=== PATIENT | female | born 1975 ===

== ENCOUNTER → 2016-05-25 | Outpatient (CLI) | payer BC ==
[~2016-05-25] MED LIST: ASCA500 PO; CHOL2000 PO; FOLI1TAB7 PO; OMEG10007 PO; PRENTAB26 PO; PRZCUNK
[2016-05-28 14:03] LABS: CHLAMYDIA TRACH RNA*** NOT DETECTED (NOT DETECTED); GC (NEIS GONORRHOEAE)RNA** NOT DETECTED (NOT DETECTED)
== END | disposition home or self-care (01) ==
LOC: C.LABSPEC 15:22
PROVIDERS: ATTEND Obstetrics & Gynecology
DX: Z34.01 Encounter for supervision of normal first pregnancy, first trimester (principal)

== ENCOUNTER → 2016-05-25 | Outpatient (CLI) | payer BC | END | disposition home or self-care (01) | LOC: C.PAPS 16:14 | PROVIDERS: ATTEND Obstetrics & Gynecology | DX: Z34.01 Encounter for supervision of normal first pregnancy, first trimester (principal) ==

== ENCOUNTER → 2016-08-25 | Outpatient (CLI) | payer BC ==
[~2016-08-25] MED LIST changes: +LEVAPOW PO; +[UNRECOGNIZED DRUG - CODE] PO
--- NOTE | 2016-08-25 13:39 | DIAGNOSTIC IMAGING REPORT ---
LIMITED ULTRASOUND CLINICAL HISTORY: VAGINAL SPOTTING, 22.6 WEEKS COMPARISON STUDY: ultrasound April 25, 2016. TECHNIQUE: Transabdominal and transvaginal sonography of the pelvis was performed. FINDINGS: A single viable intrauterine gestation is noted with normal heart rate of 142 bpm. The placenta is located posteriorly and within the fundus. There is no placental abnormality by sonography. The cervix is closed, measuring 4.3 cm in length. A few nabothian cysts are incidentally noted. Please note that a dedicated anatomical survey was not performed. Subjectively, the amount of amniotic fluid appears normal. IMPRESSION: 1. Single viable intrauterine gestation with normal heart rate of 142 bpm. 2. No placental abnormality by sonography. 3. Closed cervix, measuring 4.3 cm in length. Electronically signed by: Mickey Ware M.D. 08/25/2016 1:37 PM Dictated Date/Time: 08/25/2016 1:35 PM
== END | disposition home or self-care (01) ==
LOC: C.ULTRBC 13:03
PROVIDERS: ATTEND Obstetrics & Gynecology
DX: O26.852 Spotting complicating pregnancy, second trimester (principal); Z3A.22 22 weeks gestation of pregnancy

== ENCOUNTER 2016-12-06 23:30 | Inpatient (IN) | payer BC ==
[~2016-12-06] VITALS: Ht 175.3 cm; Wt 99.8 kg
[~2016-12-06 23:30] MED LIST changes: -CHOL2000 PO; -FOLI1TAB7 PO; -LEVAPOW PO; -OMEG10007 PO; -PRENTAB26 PO; -[UNRECOGNIZED DRUG - CODE] PO
[2016-12-07] MEDS ORDERED: LACTATED RINGER'S 1000ML 1,000 ML IV PRN (00:35)
[2016-12-07] MEDS ORDERED: LACTATED RINGER'S 1000ML 1,000 ML IV SCH (00:35)
[2016-12-07 00:57] LABS: HEMATOCRIT 37.7 % (37-47); MEAN CELL VOLUME 94.5 fL (80-100); MEAN CORPUSCULAR HEMOGLOBIN 33.1 pg (25-34); RED BLOOD COUNT 3.99 M/uL (4.2-5.4)
[2016-12-07 00:58] LABS: MEAN PLATELET VOLUME 11.8 fL (7.4-10.4); PLATELET COUNT 202 K/uL (130-400)
[2016-12-07] MEDS ORDERED: PRENTAB26 PO (01:37)
[2016-12-07] MEDS ORDERED: OMEG10007 PO (01:37)
[2016-12-07] MEDS ORDERED: FOLI1TAB7 PO (01:37)
[2016-12-07] MEDS ORDERED: CHOL2000 PO (01:37)
[2016-12-07 01:39] VITALS: Ht 175.3 cm; Wt 99.8 kg
[2016-12-07] MEDS ORDERED: NURSING VERBAL MED ORDER ONE ×2 (03:45→13:30)
[2016-12-07] MEDS ORDERED: ACETAMINOPHEN 325 MG TAB PO ONE (04:15)
[2016-12-07] MEDS ORDERED: ACETAMINOPHEN 325 MG TAB ONE ×3 (13:08→13:13)
[2016-12-07] MEDS ORDERED: LACTATED RINGER'S 1000ML 500 ML IV PRN ×2 (15:47→19:25)
[2016-12-07] MEDS ORDERED: OXYTOCIN 30 UNITS/500ML NSS IV PRN (16:00)
[2016-12-07] MEDS ORDERED: EpHEDrine SULFATE INJ 50 MG/ML AMP ONE (16:47)
[2016-12-07] MEDS ORDERED: FENTANYL CITRATE INJ 50 MCG/1 ML 2 ML VIAL ONE (16:47)
[2016-12-07] MEDS ORDERED: FENTANYL 2MCG/ML ROPIV 1.25MG/ML 100ML BAG EPI ONE (16:47)
[2016-12-07] MEDS ORDERED: BUPIVACAINE 0.25% 30 ML VIAL ONE (16:47)
[2016-12-07] MEDS ORDERED: NALOXONE HCL INJ 1 MG in SODIUM CHLORIDE 0.9% 1000ML 1,000 ML IV PRN (19:25)
[2016-12-07] MEDS ORDERED: EpHEDrine SULFATE INJ 50 MG/ML AMP IV PRN (19:30)
[2016-12-07] MEDS ORDERED: NALBUPHINE HCL INJ 10 MG/ML AMP IV PRN (19:30)
[2016-12-07] MEDS ORDERED: DiphenhydrAMINE HCL 50 MG/ML VIAL IV PRN (19:30)
[2016-12-07] MEDS ORDERED: FENTANYL 2MCG/ML ROPIV 1.25MG/ML 100ML BAG EPI PRN (19:30)
[2016-12-07] MEDS ORDERED: NALOXONE HCL INJ 0.4 MG/1 ML VIAL/CARP IV PRN (19:30)
[2016-12-08] VITALS (7 sets, daily range): BP systolic 77–140; BP diastolic 44–84; PULSE 67–111; TEMP 36.4–36.9; O2SAT 99–100
[2016-12-08] MEDS ORDERED: HYDROCORTISONE ACETATE 25 MG SUPP PR PRN
[2016-12-08] MEDS ORDERED: LANOLIN OINT EXT PRN ×2
[2016-12-08] MEDS ORDERED: OXYTOCIN 30 UNITS/500ML NSS IV PRN
[2016-12-08] MEDS ORDERED: SUPERCREAM 0.870 % 15GM JAR EXT PRN
[2016-12-08] MEDS ORDERED: ACETAMINOPHEN/CODEINE 300/30MG TAB PO PRN ×2
[2016-12-08] MEDS ORDERED: ACETAMINOPHEN 325 MG TAB PO PRN
[2016-12-08] MEDS ORDERED: DIPHTHERIA/TETANUS/PERTUSSIS 0.5 ML SYR/VIAL IM. ONE
[2016-12-08] MEDS ORDERED: OXYCODONE/ACETAMINOPHEN 5-325 TAB PO PRN
[2016-12-08] MEDS ORDERED: BENZOCAINE 20% AER SPR 82.5 GM CAN EXT PRN
[2016-12-08] MEDS ORDERED: CEFOXITIN 2000MG/60 ML D5W IV STA (00:04)
[2016-12-08 05:41] LABS: URINE APPEARANCE CLOUDY (CLEAR); URINE BILIRUBIN NEG (NEG); URINE COLOR DK YELLOW; URINE EPITHELIAL CELL AUTO >30 /lpf (0-5); URINE NITRITE NEG (NEG); URINE PH 5.5 (4.5-7.5); URINE SPECIFIC GRAVITY 1.022 (1.000-1.030); UROBILINOGEN NEG (NEG); ZZURINE CULT IF INDIC CATH YES
[2016-12-08 05:54] LABS: MANUAL MICROSCOPIC REQUIRED? NO; REVIEW REQ? YES
[2016-12-08 06:00] LABS: URINE PATH CASTS 0-3 GRANULAR CASTS /lpf (0)
[2016-12-08 06:09] LABS: HEMATOCRIT 36.4 % (37-47)
--- NOTE | 2016-12-08 07:09 | DELIVERY SUMMARY ---
DATE OF OPERATION: 12/08/2016 The patient is a 40-year-old 1, para 1, had been followed in our office for care and delivery. Blood type is O positive, rubella immune. Vaginal beta strep screen negative. Due date is 12/24/2016. Came in with miranda rupture of membranes with sporadic contractions. We advised that she have labor stimulation, she declined. She continued to decline any augmentation of labor until she was about 20 hours post rupture of membranes when she finally let us do some IV Pitocin. Prior to this, she had dilated up to about 4-5 cm and had an arrest for over 4 hours. This was managed with epidural and then IV Pitocin. With the IV Pitocin, she obtained a good labor contraction pattern and the head started to come down. However, prior to delivery, she developed some persistent tachycardia, although variability was good and delivery was eminent with head starting to crown. She went to full dilatation. With the head on the perineum and with the heart rate remaining high, I elected to do an outlet forceps with Rico forceps. The application was good in direct OA position, and with a small amount of effort, was able to deliver the head. There was nuchal cord x1 which was delivered over the head. Then, the body was delivered without difficulty. Infant was suctioned through the mouth and the nose prior to delivery of the body. Cord was clamped, cut by the patient's mother. Cord blood was taken. Then, with IV Pitocin running, the placenta was removed intact. My own estimation 1- and 5-minute Apgars were 8 and 10 respectively. Following removal of the placenta, inspection of the perineum revealed a first-degree perineal laceration, this was repaired with 2-0 Vicryl. 2-0 Vicryl was used to approximate the vaginal mucosa out until beyond the hymenal ring. A deep suture of 2-0 Vicryl was used to approximate the bulbocavernosus muscles. Two sutures were used to approximate the perineal body and then separate sutures were used to bolster the rectal sphincter capsule. Following this, a running subcuticular suture was used to approximate the perineal skin edges. Then, vaginal exam including rectovaginal examination revealed no hematoma formation or sponges in the rectum. Estimated blood loss was 300 mL. Following repair, I was notified by the nurse that she had her first elevated temperature at 100.8 and I ordered 2 blood cultures, cath urine, and Mefoxin 2 grams every 8 hours for suspected endometritis. I attest to the content of the Intraoperative Record and any orders documented therein. Any exception s are noted below.
[2016-12-08] MEDS: IBUPROFEN 600 MG TAB PO PRN ×2 (08:05→15:21)
[2016-12-08] MEDS: CEFOXITIN IV 2,000 MG in DEXTROSE 5% 50ML 50 ML IV SCH ×2 (08:05→16:50)
[2016-12-08] MEDS: PRENATAL VITAMIN TAB PO SCH (08:13)
[2016-12-08] MEDS: FERROUS SULFATE 325 MG TAB PO SCH (08:13)
[2016-12-08] MEDS: DOCUSATE SODIUM 100 MG CAP PO SCH ×2 (08:13→20:05)
--- NOTE | 2016-12-08 09:17 | Anesthesia Procedure Note ---
Anesthesia Epidural Removal Nt Date & Time Dec 08, 2016 at 09:17 Vital Signs Pain Intensity: 2.0 Vital Signs Past 12 Hours Date Time Temp Pulse Resp B/P (MAP) Pulse Ox O2 Delivery O2 Flow Rate FiO2 12/08/16 07:55 Room Air 12/08/16 07:55 36.6 68 18 118/68 (85) Room Air 12/08/16 04:03 36.9 100 18 140/84 (102) Room Air 12/08/16 02:30 36.8 111 18 112/53 (72) Room Air 12/08/16 02:30 Room Air Notes Mental Status: alert / awake / arousable, participated in evaluation Nausea / Vomiting: adequately controlled Pain: adequately controlled Airway Patency, RR, SpO2: stable & adequate BP & HR: stable & adequate Hydration State: stable & adequate Neuraxial Anesthesia: was administered Anesthetic Complications: no major complications apparent, pt satisfied with anesthetic care Epidural: removed without complications, with tip intact
--- NOTE | 2016-12-08 12:18 | Progress Note ---
Subjective Dec 08, 2016. Subjective conversation w/ patient Ambulation: ambulating normally Voiding: no voiding problems Passing Gas: Yes Diet Tolerance: Regular Diet Lochia: Small Feeding Type: Breast Feeding Review of Systems Constitutional: + fever Objective Vital Signs Date Time Temp Pulse Resp B/P (MAP) Pulse Ox O2 Delivery O2 Flow Rate FiO2 12/08/16 11:55 85/49 (61) 12/08/16 11:27 36.4 70 77/44 (55) 99 Room Air 12/08/16 07:55 Room Air 12/08/16 07:55 36.6 68 18 118/68 (85) Room Air 12/08/16 04:03 36.9 100 18 140/84 (102) Room Air 12/08/16 02:30 36.8 111 18 112/53 (72) Room Air 12/08/16 02:30 Room Air Physical Exam General Appearance: WELL-APPEARING Respiratory/Chest: lungs clear Abdomen: normal bowel sounds Fundus: Firm, Non-Tender Extremities: no pedal edema, no calf tenderness Laboratory Results Last 24 Hours Test 12/07/16 23:55 12/08/16 05:39 Urine Color DK YELLOW Urine Appearance CLOUDY Urine pH 5.5 Urine Specific [place] 1.022 Urine Protein 2+ Urine Glucose (UA) NEG Urine Ketones 1+ Urine Occult Blood 3+ Urine Nitrite NEG Urine Bilirubin NEG Urine Urobilinogen NEG Urine Leukocyte Esterase TRACE Urine WBC (Auto) 10-30 /hpf Urine RBC (Auto) >30 /hpf Urine Hyaline Casts (Auto) 1-5 /lpf Urine Epithelial Cells (Auto) >30 /lpf Urine Bacteria (Auto) NEG Urine Renal Epithelial Cells /lpf Urine Pathogenic Casts 0-3 GRANULAR CASTS /lpf Hemoglobin 12.6 g/dL Hematocrit 36.4 % Assessment and Plan Post- Day#: 1 Continue Routine Care: patient on mefoxin
[2016-12-08] MEDS ORDERED: BISACODYL 5 MG TABEC PO SCH (20:00)
[2016-12-09] MEDS: CEFOXITIN IV 2,000 MG in DEXTROSE 5% 50ML 50 ML IV SCH ×3 (01:09→16:13)
[2016-12-09 01:10] VITALS: BP 97/48; PULSE 71; TEMP 36.5; O2SAT 98
[2016-12-09] MEDS: IBUPROFEN 600 MG TAB PO PRN ×2 (03:52→16:12)
[2016-12-09] MEDS ORDERED: BISACODYL 10 MG SUPP PR PRN (07:00)
[2016-12-09] MEDS: PRENATAL VITAMIN TAB PO SCH (08:25)
[2016-12-09] MEDS: DOCUSATE SODIUM 100 MG CAP PO SCH ×2 (08:25→21:00)
[2016-12-09] MEDS: FERROUS SULFATE 325 MG TAB PO SCH (08:25)
[2016-12-09 08:39] VITALS: BP 106/58; PULSE 76; TEMP 36.7; O2SAT 98
--- NOTE | 2016-12-09 10:41 | Progress Note ---
Subjective Dec 09, 2016. Subjective conversation w/ patient Ambulation: ambulating normally Voiding: no voiding problems Passing Gas: Yes Diet Tolerance: Regular Diet Lochia: Small Feeding Type: Breast Feeding Review of Systems Constitutional: + fever Objective Vital Signs Date Time Temp Pulse Resp B/P (MAP) Pulse Ox O2 Delivery O2 Flow Rate FiO2 12/09/16 08:39 36.7 76 16 106/58 (74) 98 Room Air 12/09/16 08:15 Room Air 12/09/16 01:10 98 Room Air 12/09/16 01:10 36.5 71 16 97/48 (64) 98 Room Air 12/08/16 20:20 36.6 67 16 103/65 (78) 100 Room Air 12/08/16 16:30 Room Air 12/08/16 16:30 36.9 83 16 98/46 (63) 99 Room Air 12/08/16 12:15 Room Air 12/08/16 11:55 85/49 (61) 12/08/16 11:27 36.4 70 77/44 (55) 99 Room Air Physical Exam General Appearance: WELL-APPEARING Abdomen: non tender Fundus: Firm, Non-Tender Extremities: no pedal edema, no calf tenderness Assessment and Plan Post- Day#: 2 Continue Routine Care: patient is being treated for endometritis with IV mefoxin
[2016-12-09 11:30] VITALS: BP 115/71; PULSE 60; TEMP 36.8
[2016-12-09 16:25] VITALS: BP 122/65; PULSE 60; TEMP 36.4; O2SAT 98
[2016-12-10] MEDS: CEFOXITIN IV 2,000 MG in DEXTROSE 5% 50ML 50 ML IV SCH ×3 (00:16→16:00)
[2016-12-10 00:20] VITALS: BP 116/73; PULSE 76; TEMP 36.8; O2SAT 98
[2016-12-10 08:00] VITALS: BP 104/59; PULSE 65; TEMP 37
[2016-12-10] MEDS: DOCUSATE SODIUM 100 MG CAP PO SCH (08:14)
[2016-12-10] MEDS: PRENATAL VITAMIN TAB PO SCH (08:14)
[2016-12-10] MEDS: FERROUS SULFATE 325 MG TAB PO SCH (08:14)
[2016-12-10] MEDS: IBUPROFEN 600 MG TAB PO PRN (09:54)
--- NOTE | 2016-12-10 09:56 | Progress Note ---
Subjective Dec 10, 2016. Subjective conversation w/ patient Ambulation: ambulating normally Voiding: no voiding problems Passing Gas: Yes Diet Tolerance: Regular Diet Lochia: Small Feeding Type: Breast Feeding Review of Systems Constitutional: + fever Objective Vital Signs Date Time Temp Pulse Resp B/P (MAP) Pulse Ox O2 Delivery O2 Flow Rate FiO2 12/10/16 08:00 Room Air 12/10/16 08:00 37.0 65 16 104/59 (74) Room Air 12/10/16 00:20 Room Air 12/10/16 00:20 36.8 76 18 116/73 (87) 98 Room Air 12/09/16 16:25 Room Air 12/09/16 16:25 36.4 60 16 122/65 (84) 98 Room Air 12/09/16 11:30 36.8 60 18 115/71 (86) Room Air Physical Exam General Appearance: WELL-APPEARING Respiratory/Chest: lungs clear Abdomen: non tender Fundus: Firm, Non-Tender Extremities: no pedal edema, no calf tenderness Assessment and Plan Post- Day#: 3 Continue Routine Care: patient is on mefoxin patient will be discharged on augmentin placental culture shows small amount of growth
--- NOTE | 2016-12-10 09:59 | Discharge Instructions ---
Discharge Instructions Date of Service Dec 10, 2016. Admission Reason for Admission: LABOR Discharge Discharge Diagnosis / Problem: premature rupture of membranes endometritis Discharge Goals Goal(s): Routine recovery after delivery Activity Recommendations Activity Limitations: as noted below ACTIVITY RECOMMENDATIONS: * Gradual return to full activity over the next 2-3 weeks. * No lifting - nothing heavier than baby over the next 2-3 weeks. * Do not engage in vigorous exercise, sexual activity or sports until cleared by your physician. * Do not drive or operate any motorized equipment until cleared by your physician. * You may shower/bathe daily. DIET: Resume Previous Diet If Breast-feeding: * Increase caloric intake by 500 calories, eat 3 well balanced meals, 2 high protein snacks a day and drink 6-8 8oz. glasses of fluid per day. BREAST CARE: If you are not breast feeding: * Wear a supportive bra 24 hours a day for one to two weeks. * Avoid stimulating your breasts and nipples as much as possible during the first few weeks after delivery. * When taking a shower, have the warm water hit your back, not breasts. * When your breasts feel full, apply ice packs. Usually three to four times a day helps ease the discomfort. * Take a mild pain medication (Tylenol / Motrin) when you are uncomfortable. If breast feeding: * Use breast milk to lubricate nipples. Lansinoh cream may be used for sore nipples. You do not need to remove cream prior to breast feeding. If using a different brand of cream, check the label for directions regarding removal of cream prior to nursing. * Wear a supportive bra. * If having problems with breasts or breast feeding, call a program evaluation consultant or your health care provider. OVER THE COUNTER MEDICATION: * For discomfort or pain, you may use Acetaminophen (Tylenol), Ibuprofen (Advil ), or Naproxen (Aleve) following the package directions. * For constipation you may use Colace following the package directions. SPECIAL CARE INSTRUCTIONS: * Vaginal rest (no tampons, douching, intercourse) until after doctor 's visit. * control as discussed with doctor. * Verbalizes understanding of car seat law as reviewed with patient nursing. * Car Seat hand-out given and reviewed with patient by nursing. * Shaken baby information reviewed with patient by nursing. Call you doctor if: * Temperature greater than or equal to 100.4 degrees F or 38.0 degrees C. Take your temperature twice daily for a week. * Bleeding becomes heavier than the heaviest part of your period - saturating a sanitary pad within an hour. * Passing large clots. * Bleeding has a foul smelling odor. * Signs and symptoms of phlebitis: leg pain, warm, red or swollen area on leg. * "Baby Blues" lasting longer than two weeks. ++ If you have had a and incision has increased pain, redness, swelling, presence of any drainage, or if the incision starts to open up. If you have any questions or concerns, call your health care practitioner at [phone]. FOLLOW-UP VISIT: Please call the office at to schedule a 6 week examination. . Instructions / Follow-Up Instructions / Follow-Up ACTIVITY RECOMMENDATIONS: * Gradual return to full activity over the next 2-3 weeks. * No lifting - nothing heavier than baby over the next 2-3 weeks. * Do not engage in vigorous exercise, sexual activity or sports until cleared by your physician. * Do not drive or operate any motorized equipment until cleared by your physician. * You may shower/bathe daily. DIET: Resume Previous Diet If Breast-feeding: * Increase caloric intake by 500 calories, eat 3 well balanced meals, 2 high protein snacks a day and drink 6-8 8oz. glasses of fluid per day. BREAST CARE: If you are not breast feeding: * Wear a supportive bra 24 hours a day for one to two weeks. * Avoid stimulating your breasts and nipples as much as possible during the first few weeks after delivery. * When taking a shower, have the warm water hit your back, not breasts. * When your breasts feel full, apply ice packs. Usually three to four times a day helps ease the discomfort. * Take a mild pain medication (Tylenol / Motrin) when you are uncomfortable. If breast feeding: * Use breast milk to lubricate nipples. Lansinoh cream may be used for sore nipples. You do not need to remove cream prior to breast feeding. If using a different brand of cream, check the label for directions regarding removal of cream prior to nursing. * Wear a supportive bra. * If having problems with breasts or breast feeding, call a program evaluation consultant or your health care provider. OVER THE COUNTER MEDICATION: * For discomfort or pain, you may use Acetaminophen (Tylenol), Ibuprofen (Advil ), or Naproxen (Aleve) following the package directions. * For constipation you may use Colace following the package directions. SPECIAL CARE INSTRUCTIONS: * Vaginal rest (no tampons, douching, intercourse) until after doctor 's visit. * control as discussed with doctor. * Verbalizes understanding of car seat law as reviewed with patient nursing. * Car Seat hand-out given and reviewed with patient by nursing. * Shaken baby information reviewed with patient by nursing. Call you doctor if: * Temperature greater than or equal to 100.4 degrees F or 38.0 degrees C. Take your temperature twice daily for a week. * Bleeding becomes heavier than the heaviest part of your period - saturating a sanitary pad within an hour. * Passing large clots. * Bleeding has a foul smelling odor. * Signs and symptoms of phlebitis: leg pain, warm, red or swollen area on leg. * "Baby Blues" lasting longer than two weeks. ++ If you have had a and incision has increased pain, redness, swelling, presence of any drainage, or if the incision starts to open up. If you have any questions or concerns, call your health care practitioner at [phone]. FOLLOW-UP VISIT: Please call the office at to schedule a 6 week examination. Current Hospital Diet Patient's current hospital diet: Regular Diet Discharge Diet Recommended Diet: Regular Diet Pending Studies Studies pending at discharge: no Medical Emergencies . Who to Call and When: Medical Emergencies: If at any time you feel your situation is an emergency, please call 911 immediately. . Non-Emergent Contact Non-Emergency issues call your: Assistant Dean Of Students Call Non-Emergent contact if: temperature is above 100.5 . . "Provider Documentation" section prepared by Du Ding. . VTE Core Measure Inpt VTE Proph given/why not?: Treatment not indicated
[2016-12-10 16:58] VITALS: BP_DIAS 59; PULSE 65; TEMP 37
--- NOTE | 2016-12-12 09:54 | EDITING REQUIRED CODING QUERY ---
CODING QUERY Dear Dr. Ding, To promote full compliance with coding requirements relating to patient care, provider participation is requested in all cases of safety intern uncertainty. Please assist us with the question(s) below: Coding Question(s): Was the forcep delivery? ( ) High ( ) Mid ( ) Low ( ) Other: Please explain Physician's Response(s): low forceps Thank you for your time. Loly Laguna [facility] Principal Diagnosis: "_that condition established after study, to be chiefly responsible for occasioning the admission of the patient to the hospital for care." Co-Existing Principal Diagnosis: "_when two or more diagnoses equally meet the criteria for principal diagnosis as determined by the circumstances of admission, diagnostic work up, and/or therapy provided, and the Alphabetic Index, Tabular List, or another coding guideline does not provide sequencing direction, any one of the diagnoses may be sequenced first." "When the physician has documented what appears to be a current diagnosis in the body of the record, but has not included the diagnosis in the final diagnostic statement, the physician should be asked whether the diagnosis should be added." (Source Coding [facility] 2 QTR90. p3-4)
== END 2016-12-10 18:37 | disposition home or self-care (01) | DRG 774 ==
LOC: C.OPB 23:30 → C.LD 23:30 → C.OPB 12-07 00:38 → C.MS4N 12-08 10:27
PROVIDERS: ADMIT Obstetrics & Gynecology; ATTEND Obstetrics & Gynecology
PROC: 10D07Z3 Extraction of Products of Conception, Low Forceps, Via Natural or Artificial Opening (ICD-10-PCS; principal; 2016-12-08)
DX: O42.02 Full-term premature rupture of membranes, onset of labor within 24 hours of rupture (principal); O75.3 Other infection during labor; O99.214 Obesity complicating childbirth; O26.893 Other specified pregnancy related conditions, third trimester; O76 Abnormality in fetal heart rate and rhythm complicating labor and delivery; O70.0 First degree perineal laceration during delivery; O69.81X0 Labor and delivery complicated by cord around neck, without compression, not applicable or unspecified; N71.9 Inflammatory disease of uterus, unspecified; E66.9 Obesity, unspecified; Z68.32 Body mass index [BMI] 32.0-32.9, adult; Z37.0 Single live birth; Z3A.37 37 weeks gestation of pregnancy

== ENCOUNTER → 2017-04-19 | Day surgery (SDC) | payer BC ==
[2017-04-17 12:07] VITALS: Ht 172.7 cm; Wt 93.0 kg
--- NOTE | 2017-04-18 11:47 | History and Physical: Surg Cnt ---
History & Physical Date Apr 18, 2017. Chief Complaint sore throats History of Present Illness The patient is a 41 year old female with complaints of chronic tonsillitis Additional History Hepatic Disease: No Endocrine Disorder: No Kidney Disease: No Hypertension: No Heart Disease: No Bleeding Tendencies: No Infectious Diseases: No Allergies Coded Allergies: No Known Allergies (Unverified , 04/17/17) Home Medications Scheduled Ascorbic Acid (Vitamin C), 500 MG PO DAILY Cholecalciferol (Vitamin D3), 1 CAP PO DAILY Fish Oil ([place]-3), 1 CAP PO DAILY Levamisole Hcl (Levamisole Hcl), 1 DOSE PO WK Levocarnitine Fumarate (Carnitine), 500 MG PO DAILY Multivit/Min/Iron/Fol Ac/Pren ( Vitamin), 1 TAB PO DAILY Physical Examination Skin: warm/dry, no rash Eyes: normal inspection, EOMI, sclerae normal ENT: normal ENT inspection, pharynx normal Head: normocephalic, atraumatic Neck: supple, no adenopathy, trachea midline Respiratory/Chest: lungs clear, normal breath sounds, no respiratory distress Cardiovascular: regular rate, rhythm, no edema, no murmur Abdomen / GI: normal bowel sounds, non tender Back: normal inspection Extremities: normal inspection, normal range of motion Neurologic/Psych: no motor/sensory deficits, alert, normal reflexes, oriented x 3 Diagnosis chronic tonsillitis Plan of Treatment adenotonsillectomy
[~2017-04-19] VITALS: Ht 172.7 cm; Wt 93.0 kg
[~2017-04-19] MED LIST changes: +ACETAMINOPHEN/HYDROCODONE ELIX 15 ML/CUP UDP ONE; +ACETAMINOPHEN/HYDROCODONE ELIX 15 ML/CUP UDP PO PRN; +ATROPINE SULFATE 0.1 MG/ML 5ML SYR IV PRN; +BUPIVACAINE/EPINEPHRINE 0.5% MPF 1:200,000 30 ML VIAL ONE; +CHOL2000 PO; +DEXAMETHASONE SOD INJ 4 MG/ML VIAL ONE; +FENTANYL CITRATE INJ 50 MCG/1 ML 2 ML VIAL IV PRN; +FENTANYL CITRATE INJ 50 MCG/1 ML 2 ML VIAL ONE; +HYDR1SOL10 PO; +LACTATED RINGER'S 1000ML 1,000 ML IV SCH; +LEVAPOW PO; +LIDOCAINE HCL 2% 2 ML VIAL (20MG/ML) ONE; +MIDAZOLAM HCL 1 MG/ML 2ML VIAL ONE; +OMEG10007 PO; +ONDANSETRON INJ 2 MG/ML 2 ML VIAL IV PRN; +ONDANSETRON INJ 2 MG/ML 2 ML VIAL ONE; +PRENTAB26 PO; +PROPOFOL IV EMULSION 10 MG/ML 20 ML VIAL IV ONE; -PRZCUNK; +SODIUM CHLORIDE 0.9% 1000ML 1,000 ML IV SCH; +[UNRECOGNIZED DRUG - CODE] PO
--- NOTE | 2017-04-19 08:33 | History & Physical Bridge Note ---
H&P Re-Evaluation Bridge Note: I have examined the patient, reviewed the History & Physical and in the interval since the performance of the History & Physical I have noted the following changes of clinical significance: No changes noted
--- NOTE | 2017-04-19 08:35 | Discharge Instructions-SurgCtr ---
Discharge Instructions Date of Service Apr 19, 2017. Visit Reason for Visit: Chronic Tonsillitis Discharge Discharge Diagnosis / Problem: same Discharge Goals Goal(s): Improve disease control Activity Recommendations Activity Limitations: per Instructions/Follow-up section Anesthesia . Post Anesthesia Instructions: If you have had General Anesthesia or IV Sedation: * Do not drive today. * Resume driving when surgeon permits. * Do not make important decisions or sign legal documents today. * Call surgeon for: 1. Temperature elevations greater than 101 degrees F. 2. Uncontrollable pain. 3. Excessive bleeding. 4. Persistent nausea and vomiting. 5. Medication intolerance (nausea, vomiting or rash). * For nausea and vomiting use only clear liquids such as: tea, soda, bouillon until nausea subsides, then gradually increase diet as tolerated. * If you have any concerns or questions, call your surgeon's office. If physician is unavailable and it is an emergency, call 911 or go to the nearest emergency room. . Instructions / Follow-Up Instructions / Follow-Up ACTIVITY RECOMMENDATIONS: * During the first few days, activities should be limited. * Stay indoors for several days. * After 48 hours, activity can gradually be increased to normal activity. RETURN TO SCHOOL/WORK: * Return to school or work in one week. * No physical education for two weeks. OVER THE COUNTER MEDICATIONS: * You may use Tylenol * Avoid aspirin or aspirin containing products, e.g. as they may increase bleeding. SPECIAL CARE INSTRUCTIONS: * Avoid coughing or clearing the throat. * Do not use a straw. * A sore throat is expected frequently accompanied by pain radiating to the ears. This is normal. * Expect bad breath until "scabs" are healed. * Notify the doctor if bleeding occurs, vomiting, temperature greater than 101 degrees Fahrenheit. Call or cell phone: . * If bleeding occurs, it is usually in the first 24 hours or after the 5th day. If unable to reach the doctor, go to the nearest Emergency Department. Special Diet: * Fluids are very important and should be encouraged to maintain adequate hydration. * To maintain nutrition, eat soft foods and after 48 hours the consistency of foods can be increased. Examples are jello, soup, pasta, ice cream and mashed foods. FOLLOW UP VISIT: Follow-up visit with Dr. Seals in 2 weeks. Please call to schedule if not already scheduled. Diet Recommendations Home Diet: special diet Diet Texture: Mechanical Soft (ground) Pending Studies Studies pending at discharge: no Medical Emergencies . Who to Call and When: Medical Emergencies: If at any time you feel your situation is an emergency, please call 911 immediately. . Non-Emergent Contact Non-Emergency issues call your: Primary Care Provider . . "Provider Documentation" section prepared by Hansa Seals. . [place] Drug Monitoring Program Search Results: no issues identified
[2017-04-19 10:17] VITALS: TEMP 36.5
[2017-04-19 10:53] VITALS: BP 111/75; PULSE 56; O2SAT 99
--- NOTE | 2017-04-19 11:03 | Anesthesia Progress Nt - [facility] ---
Anesthesia Post Op Note Date & Time Apr 19, 2017 at 11:02 Vital Signs Pain Intensity: 1 Vital Signs Past 12 Hours Date Time Temp Pulse Resp B/P (MAP) Pulse Ox O2 Delivery O2 Flow Rate FiO2 04/19/17 10:53 56 16 111/75 (87) 99 Room Air 04/19/17 10:17 36.5 71 16 110/75 (87) 98 Room Air 04/19/17 10:08 63 9 100 04/19/17 10:08 64 9 04/19/17 10:06 36.3 61 12 114/75 100 Room Air 04/19/17 10:05 114/75 04/19/17 10:03 71 15 04/19/17 10:03 72 15 99 04/19/17 10:00 107/79 04/19/17 09:58 69 9 100 04/19/17 09:58 69 9 04/19/17 09:55 112/72 04/19/17 09:53 69 13 04/19/17 09:53 70 13 98 04/19/17 09:50 104/69 04/19/17 09:48 66 17 04/19/17 09:48 64 17 98 04/19/17 09:45 109/66 04/19/17 09:43 74 17 04/19/17 09:43 74 17 98 04/19/17 09:40 101/62 04/19/17 09:38 80 11 04/19/17 09:38 80 11 100 04/19/17 09:35 105/62 04/19/17 09:34 102/67 04/19/17 09:33 87 99 04/19/17 09:33 87 04/19/17 09:33 36.4 82 12 102/67 99 Humidified Oxygen 6 Mask 04/19/17 08:14 36.7 62 16 113/74 (87) 98 Room Air Notes Mental Status: alert / awake / arousable, participated in evaluation Pt Amnestic to Procedure: Yes Nausea / Vomiting: adequately controlled Pain: adequately controlled Airway Patency, RR, SpO2: stable & adequate BP & HR: stable & adequate Hydration State: stable & adequate Anesthetic Complications: no major complications apparent
--- NOTE | 2017-04-25 13:08 | OPERATIVE REPORT ---
DATE OF OPERATION: 04/25/2017 PREOPERATIVE DIAGNOSES: Chronic tonsillitis and adenoid hypertrophy. POSTOPERATIVE DIAGNOSES: Same. PROCEDURE: Adenotonsillectomy. SURGEON: Dr. Seals. ANESTHESIA: General endotracheal. COMPLICATIONS: None. BLOOD LOSS: 2 mL. HISTORY OF PRESENT ILLNESS: This lady presented with significant recurrent chronic tonsillitis and significant formation of tonsil stones. DESCRIPTION OF PROCEDURE: The patient was brought to the operating room and placed in supine position. General endotracheal anesthesia was induced, draped in the usual manner. Mouth gag was placed. Peritonsillar area was injected with 0.5% Sensorcaine, 1:200:000 strength Epinephrine. Soft palate retracted using a red Martin catheter. Tonsillectomy performed using the coblation device coblating out the tonsil from anterior to the posterior pillar and from the superior pole to the inferior pole. Both tonsils were removed in a similar manner. Hemostasis was controlled with the coblation device. Adenoidectomy was performed using the coblation technique and hemostasis controlled using the coblation technique. The patient tolerated the procedure well and was taken to the recovery room in satisfactory condition. I attest to the content of the Intraoperative Record and any orders documented therein. Any exception s are noted below.
== END | disposition home or self-care (01) ==
LOC: X.SURG 08:03
PROVIDERS: ATTEND Otolaryngology
DX: J35.01 Chronic tonsillitis (principal); E66.9 Obesity, unspecified; Z68.31 Body mass index [BMI] 31.0-31.9, adult; Z90.89 Acquired absence of other organs; Z87.891 Personal history of nicotine dependence

== ENCOUNTER → 2017-04-25 | Outpatient (CLI) | payer BC ==
[~2017-04-25] MED LIST changes: -ACETAMINOPHEN/HYDROCODONE ELIX 15 ML/CUP UDP ONE; -ACETAMINOPHEN/HYDROCODONE ELIX 15 ML/CUP UDP PO PRN; -ATROPINE SULFATE 0.1 MG/ML 5ML SYR IV PRN; -BUPIVACAINE/EPINEPHRINE 0.5% MPF 1:200,000 30 ML VIAL ONE; -DEXAMETHASONE SOD INJ 4 MG/ML VIAL ONE; -FENTANYL CITRATE INJ 50 MCG/1 ML 2 ML VIAL IV PRN; -FENTANYL CITRATE INJ 50 MCG/1 ML 2 ML VIAL ONE; -LACTATED RINGER'S 1000ML 1,000 ML IV SCH; -LIDOCAINE HCL 2% 2 ML VIAL (20MG/ML) ONE; -MIDAZOLAM HCL 1 MG/ML 2ML VIAL ONE; -ONDANSETRON INJ 2 MG/ML 2 ML VIAL IV PRN; -ONDANSETRON INJ 2 MG/ML 2 ML VIAL ONE; -PROPOFOL IV EMULSION 10 MG/ML 20 ML VIAL IV ONE; -SODIUM CHLORIDE 0.9% 1000ML 1,000 ML IV SCH
--- NOTE | 2017-04-25 17:20 | DIAGNOSTIC IMAGING REPORT ---
MRI OF THE LUMBAR SPINE WITHOUT CONTRAST CLINICAL HISTORY: Lumbar radiculopathy. Lower back pain. COMPARISON STUDY: No previous studies for comparison. TECHNIQUE: Utilizing a 1.5 Moon magnet and dedicated coil, multiplanar, multiecho imaging of the lumbar spine was performed without IV contrast. FINDINGS: For purposes of numbering on this exam, the L5-S1 disc space is assigned to axial image 23 of 25. Alignment of the lumbar spine is anatomic. Vertebral body heights are maintained there is no marrow replacement. Conus terminates at the mid L1 level. There is no intraocular mass or fluid collection. Paravertebral soft tissues are unremarkable. A few small T1 and T2 hyperintense lesions reflect hemangiomas. L1-2: The central canal and neural foramen are patent. L2-3: The central canal and neural foramen are patent. L3-4: The central canal and neural foramen are patent. L4-5: The central canal and neural foramen are patent. L5-S1: There is disc desiccation with moderate disc space narrowing. There is mild disc bulge. The central canal is patent. There is mild narrowing of both neural foramen. IMPRESSION: 1. Mild degenerative disc disease at L5-S1 with disc space narrowing and disc bulge without central canal stenosis. Minimal bilateral neural foraminal narrowing at this level. Otherwise, unremarkable MRI of the lumbar spine. No disc herniation. 2. No lumbar spine compression fracture. Electronically signed by: Mickey Ware M.D. 04/25/2017 5:18 PM Dictated Date/Time: 04/25/2017 5:13 PM
== END | disposition home or self-care (01) ==
LOC: C.MRIBC 16:24
PROVIDERS: ATTEND Physician Assistant
DX: M51.17 Intervertebral disc disorders with radiculopathy, lumbosacral region (principal); M48.07 Spinal stenosis, lumbosacral region